=== PATIENT | male | born 1945 | race African-American/Black ===

== ENCOUNTER 2025-01-16 13:11 | Emergency (ER) | payer MEDICARE ==
[~2025-01-16] VITALS: Ht 172.7 cm; Wt 79.0 kg
[2025-01-16 13:15] VITALS: TEMP 36.7; O2SAT 98
[2025-01-16] MEDS: METHOCARBAMOL 750MG TABLET PO SCH (14:53)
[2025-01-16] MEDS: KETOROLAC 30MG/ML VIAL IM ONE (14:54)
[2025-01-16] MEDS: HYDROCODONE/ACETAMINOPHEN 5/325MG TABLET PO ONE (14:54)
[2025-01-16] MEDS ORDERED: IBUP-2028 MT (16:18)
[2025-01-16] MEDS ORDERED: METH-653 MT (16:18)
[2025-01-16] MEDS ORDERED: HYDR-4001 MT (16:18)
[2025-01-16] MEDS ORDERED: LIDO-53 TP (16:18)
[2025-01-16 16:52] VITALS: BP 138/76; PULSE 71; RESP 17; O2SAT 99
== END 2025-01-16 17:04 | disposition home or self-care (01) ==
LOC: ER 13:11
DX: M54.50 Low back pain, unspecified (principal); E11.9 Type 2 diabetes mellitus without complications; I10 Essential (primary) hypertension; Z79.899 Other long term (current) drug therapy
CPT/HCPCS: 99283; 96372; J1885